=== PATIENT | female | born 1945 | race Caucasian/White ===

== ENCOUNTER 2016-07-21 22:14 | Emergency (ER) | payer OTHER ==
[~2016-07-21] VITALS: Ht 157.5 cm; Wt 60.5 kg
[2016-07-21 22:46] VITALS: Ht 157.5 cm; Wt 60.5 kg
--- NOTE | 2016-07-22 01:02 | RADRPT ---
PROCEDURE: XR Chest. CLINICAL INDICATION: Chest pain. TECHNIQUE: Single frontal chest x-ray. COMPARISON: None. FINDINGS: The cardiomediastinal silhouette is unremarkable. There is no congestive heart failure.. There is h ypoventilation with minimal bibasilar atelectasis. There is no pleural effusion. There is no pneum othorax. The osseous structures are unremarkable. IMPRESSION: I have bibasilar RPTAT: HMVK .Jd Draper MD, Date Time Electronically viewed and signed by .Jd Draper MD, on 07/22/2016 01:02 .K/
[2016-07-22 01:05] LABS: ADD SCAN DIFF NO
[2016-07-22 01:06] LABS: BASOPHILS % 0.7 % (0.0-2.0); EOSINOPHILS % 0.7 % (0.0-7.0); HEMATOCRIT 38.9 % (37.0-47.0); LYMPHOCYTES # 1.5 10^3/ul (0.8-2.9); LYMPHOCYTES % 33.6 % (15.0-51.0); MEAN CORPUSCULAR HEMOGLOBIN 31.2 pg (29.0-33.0); MEAN CORPUSCULAR HGB CONC 33.4 g/dl (32.0-37.0); MEAN CORPUSCULAR VOLUME 93.3 fl (82.0-101.0); MEAN PLATELET VOLUME 11.9 fl (7.4-10.4); MONOCYTE # 0.3 10^3/ul (0.3-0.9); NEUTROPHIL # 2.5 10^3/ul (1.6-7.5); NEUTROPHILS % 57.8 % (39.0-77.0); PLATELET COUNT 258 10^3/UL (140-415); RED BLOOD COUNT 4.17 10^6/ul (4.20-5.40); RED CELL DISTRIBUTION WIDTH 13.2 % (11.5-14.5); WHITE BLOOD COUNT 4.3 10^3/ul (4.8-10.8)
[2016-07-22 01:23] LABS: INR 1.11; PROTIME 14.3 Sec (12.2-14.2); PT RATIO 1.1
[2016-07-22 01:24] LABS: ADD UMIC YES; URINE BILIRUBIN (Dip) NEGATIVE (NEGATIVE); URINE BLOOD (Dip) 1+ (NEGATIVE); URINE COLOR LT. YELLOW (YELLOW); URINE GLUCOSE (Dip) NEGATIVE (NEGATIVE); URINE KETONES (Dip) NEGATIVE (NEGATIVE); URINE LEUKOCYTE ESTERASE (Dip) NEGATIVE (NEGATIVE); URINE NITRITE (Dip) NEGATIVE (NEGATIVE); URINE TOTAL PROTEIN (Dip) NEGATIVE (NEGATIVE); URINE UROBILINOGEN (Dip) 0.2 E.U./dL (0.1-1.0)
[2016-07-22 01:25] LABS: PARTIAL THROMBOPLASTIN TIME 34.1 Sec (25.0-35.0)
[2016-07-22 01:27] LABS: ANION GAP 16 (8-16)
[2016-07-22 01:30] LABS: BLOOD UREA NITROGEN 13 mg/dl (7-20); CALCIUM 9.2 mg/dl (8.4-10.2); CARBON DIOXIDE 23 mmol/L (21-31); CHLORIDE 106 mmol/L (97-110); CREATININE 0.75 mg/dl (0.44-1.00); GLUCOSE 112 mg/dl (70-220); POTASSIUM 4.2 mmol/L (3.5-5.1); SODIUM 141 mmol/L (135-144)
[2016-07-22 01:41] LABS: SQUAMOUS EPITHELIAL CELL,UR OCCASIONAL
[2016-07-22 01:44] LABS: TROPONIN-I < 0.012 ng/ml (0.00-0.12)
--- NOTE | 2016-07-22 02:07 | ERD ---
ER Documentation Chief Complaint Date/Time DATE: 07/22/16 TIME: 02:04 Chief Complaint ABDOMINAL PAIN, ATE SALD FELT DIZZY, WEAK, NAUSEA. HPI This is a 70-year-old female presents to the emergency room with her daughter for feeling weak and dizzy with mild nausea. The patient states that her symptoms have been present since 8 PM. As I was speaking to this patient her daughter did state that she took sleeping medications. I looked at this to be medications in this patient did take 10 mg of zolpidem at 7 PM and started to feel weak and dizzy at 8 PM. Patient denying active chest pain or palpitations shortness of breath at this time ROS All systems reviewed and are negative except as per history of present illness. PMhx/Soc History of Surgery: Yes Anesthesia Reaction: No Hx Neurological Disorder: No Hx Respiratory Disorders: No Hx Cardiac Disorders: Yes (HTN, HIGH CHOLESTEROL) Hx Psychiatric Problems: No Hx Miscellaneous Medical Probl: No Hx Alcohol Use: No Hx Substance Use: No Hx Tobacco Use: No Smoking Status: Never smoker Physical Exam Vitals Vital Signs Date Time Temp Pulse Resp B/P Pulse Ox O2 Delivery O2 Flow Rate FiO2 07/21/16 22:46 96.7 66 18 180/79 100 Physical Exam INITIAL VITAL SIGNS: Reviewed by me GENERAL: The patient is well developed and appropriate for usual state of health in no apparent distress HEENT: Pupils equal, round, and reactive to light. EOMI. There is no scleral icterus. NECK: C-spine is soft and supple, there is no meningismus. There is no cervical lymphadenopathy. LUNGS: Clear to auscultation bilaterally. There are no rales, wheezes or rhonchi. HEART: Regular rate and rhythm, no murmurs, clicks, rubs or gallops. ABDOMEN: Soft, non-tender, non-distended. There are bowel sounds in all four quadrants. No rebound or guarding. EXTREMITIES: There is no peripheral cyanosis or edema. No focal swelling or erythema. NEUROLOGICAL: The patient moves all four extremities with 5/5 strength. Cranial nerves II - XII are intact. Normal gait. Alert and oriented SKIN: There is no apparent rash or petechiae. HEME/LYMPHATIC: There is no evidence of excessive bruising or lymphedema. PSYCHIATRIC: The patient does not appear anxious or depressed. Result Diagram: 07/22/16 0010 07/22/16 0010 Results 24 hrs Laboratory Tests Test 07/22/16 00:10 07/22/16 01:03 White Blood Count 4.310^3/ul Red Blood Count 4.1710^6/ul Hemoglobin 13.0g/dl Hematocrit 38.9% Mean Corpuscular Volume 93.3fl Mean Corpuscular Hemoglobin 31.2pg Mean Corpuscular Hemoglobin Concent 33.4g/dl Red Cell Distribution Width 13.2% Platelet Count 20877^3/UL Mean Platelet Volume 11.9fl Neutrophils % 57.8% Lymphocytes % 33.6% Monocytes % 7.0% Eosinophils % 0.7% Basophils % 0.7% Nucleated Red Blood Cells % 0.0/100WBC Neutrophils # 2.510^3/ul Lymphocytes # 1.510^3/ul Monocytes # 0.310^3/ul Eosinophils # 0.010^3/ul Basophils # 0.010^3/ul Nucleated Red Blood Cells # 0.010^3/ul Prothrombin Time 14.3Sec Prothrombin Time Ratio 1.1 INR International Normalized Ratio 1.11 Activated Partial Thromboplast Time 34.1Sec Sodium Level 141mmol/L Potassium Level 4.2mmol/L Chloride Level 106mmol/L Carbon Dioxide Level 23mmol/L Anion Gap 16 Blood Urea Nitrogen 13mg/dl Creatinine 0.75mg/dl Glucose Level 112mg/dl Calcium Level 9.2mg/dl Troponin I < 0.012ng/ml Urine Color LT. YELLOW Urine Clarity CLEAR Urine pH 6.0 Urine Specific Dutton 1.010 Urine Ketones NEGATIVE Urine Nitrite NEGATIVE Urine Bilirubin NEGATIVE Urine Urobilinogen 0.2 E.U./dL Urine Leukocyte Esterase NEGATIVE Urine Microscopic RBC 2-5/HPF Urine Microscopic WBC 0-2/HPF Urine Squamous Epithelial Cells OCCASIONAL Urine Hemoglobin 1+ Urine Glucose NEGATIVE% Urine Total Protein NEGATIVE Procedures/MDM EKG: Rate/Rhythm: [Normal Sinus Rhythm] QRS, ST, T-waves: [No changes consistent w/ acute ischemia] Impression: [No evidence of ischemia or arrhythmia] Chest X-ray 1V Interpreted by me: Soft Tissue: No acute abnormalities Bones: No acute abnormalities Mediastinum/Cardiac Silhouette/Lungs: [No acute abnormalities] This 70-year-old female presents to the emergency room for evaluation of weakness and dizziness. After a detailed history was obtained this patient was found to have taken 10 mg of zolpidem at 7 PM, she could not go to sleep. She then started to feel weak and dizzy. EKG was obtained which is nonischemic, negative chest x-ray, negative troponin and urinalysis. I do feel this patient' s symptoms are related to medication. The patient is taking zolpidem for inability to sleep. I advised her that she should discontinue the use of this medication as it can be extremely dangerous. The patient's family members did state that she used to be on alprazolam and they would like to restart the alprazolam. I told her that this is a discussion that should help with her primary care physician and I do not feel comfortable starting a 70-year-old female on the benzodiazepines in the emergency room. I did genetic counselor them on the risks of benzodiazepines including risk of addiction and similar symptoms. They did verbalize understanding and they will follow-up with her primary care physician. Departure Diagnosis: Primary Impression: Medication reaction Additional Impressions: Weakness Dizzinesses Condition: Stable AMOL JUAREZ DO Jul 22, 2016 02:07
== END 2016-07-22 02:32 | disposition home or self-care (01) ==
LOC: E/R 22:14
DX: R53.1 Weakness (principal); R42 Dizziness and giddiness; T42.6X5A Adverse effect of other antiepileptic and sedative-hypnotic drugs, initial encounter; I10 Essential (primary) hypertension; R40.2142 Coma scale, eyes open, spontaneous, at arrival to emergency department; R40.2252 Coma scale, best verbal response, oriented, at arrival to emergency department; R40.2362 Coma scale, best motor response, obeys commands, at arrival to emergency department
CPT/HCPCS: 36415; 71010; 80048; 81001; 84484; 85025; 85610; 85730; 93005